=== PATIENT | female | born 1990 | race American Indian/Alaskan Native ===

== ENCOUNTER 2020-07-26 21:13 | Outpatient (CLI) | payer MEDICAID ==
[2020-07-27] MEDS ORDERED: LACTATED RINGERS 500 ML IV ONE (00:35)
[2020-07-27 01:00] LABS: Bacteria,Urine 2+ /HPF (Negative); Bilirubin,Urine NEG (Negative); Blood,Urine NEG (Negative); Color,Urine Yellow (Yellow); Mucus,Urine 3+ /HPF; Protein,Urine <15 mg/dL mg/dL (Negative)
[2020-07-27] MEDS ORDERED: ACETAMINOPHEN 500 MG TAB PO ONE (01:24)
[2020-07-27 01:42] VITALS: BP 116/60
== END 2020-07-26 23:45 | disposition home or self-care (01) ==
LOC: TRG 21:13 → ED 21:13 → EDSTATUS 23:35 → TRG 23:37 → EDSEX 23:37 → TRG 23:38 → APU 07-27 00:07
PROVIDERS: ATTEND Obstetrics & Gynecology
DX: O26.892 Other specified pregnancy related conditions, second trimester (principal); R10.9 Unspecified abdominal pain; Z3A.26 26 weeks gestation of pregnancy
CPT/HCPCS: 59025; 81001